=== PATIENT | female | born 1985 | race Caucasian/White ===

== ENCOUNTER 2016-12-10 13:06 | Day surgery (SDC) | payer BC ==
[2016-12-10 13:29] LABS: BASOPHIL 0.4 % (0-2.0); EOSINOPHIL 0.4 % (0-4.5); MCH 28.9 pg (25.7-33.7); MCHC 33.8 g/dl (32.0-36.0); MEAN CELL VOLUME 85.4 fl (80-96); MEAN PLT VOLUME 9.4 fl (7.5-11.1); NEUTROPHILS 75.4 % (42.8-82.8); RDW 12.9 % (11.6-15.6); WHITE BLOOD COUNT 8.6 K/mm3 (4.0-10.0)
[2016-12-10 13:39] VITALS: BMI 28.3
[2016-12-10 14:04] LABS: ALBUMIN 3.2 g/dl (3.4-5.0); ALK PHOS 54 U/L (45-117); ANION GAP 9 (8-16); BILIRUBIN,TOTAL 0.3 mg/dL (0.2-1.0); CALCIUM 8.5 mg/dL (8.5-10.1); CO2 24 mmol/L (21-32); CREATININE 0.5 mg/dL (0.55-1.02); GLUCOSE,RANDOM 82 mg/dL (74-106); SGOT/AST 10 U/L (15-37); SGPT/ALT 16 U/L (12-78); TOT PROT 6.8 g/dl (6.4-8.2)
[2016-12-10 14:06] LABS: ACTIVATED PTT 26.5 SECONDS (26.9-34.4)
[2016-12-10 14:17] LABS: PLATELET COUNT 245 K/MM3 (134-434); PLATELET ESTIMATE ADEQUATE (NORMAL)
[2016-12-10] MEDS ORDERED: PROMETHAZINE HCL 25 MG/1 ML VIAL IVPUSH PRN (14:21)
[2016-12-10] MEDS ORDERED: ONDANSETRON 4 MG/2 ML VIAL IVPUSH PRN (14:21)
[2016-12-10] MEDS ORDERED: PROPOFOL 20 ML ONE ×2 (14:25)
[2016-12-10] MEDS ORDERED: MIDAZOLAM HCL 2 MG/2 ML SINGLE DOSE VIAL ONE ×2 (14:25→14:42)
[2016-12-10] MEDS ORDERED: LACTATED RINGERS SOLUTION 1,000 ML IV SCH (14:30)
--- NOTE | 2016-12-10 14:40 | HP ---
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: No: Alzheimer's, CVA, Dementia, Migraine, Multiple Sclerosis, Peripheral Neuropathy, Parkinson's, Seizure, Syncope, TIA, Vertigo, Other Cardiovascular: No: AFIB, Aneurysm, Aortic Insufficiency, Aortic Stenosis, CAD, CHF, Deep Vein Thrombosis, HTN, Hyperlipdemia, ID, Mitral Insufficiency, Mitral Stenosis, Murmur, Pulmonary Hypertension, Other Pulmonary: No: Asthma, Bronchitis, Cancer, COPD, O2 Dependent, Pneumonia, Previously Intubated, Pulmonary Embolus, Pulmonary Fibrosis, Sleep Apnea, Other Gastrointestinal: No: Ascites, Cancer, Constipation, Crohn's Disease, Diverticulitis, Diverticulosis, Esophageal Varices, Gastritis, GERD, GI Bleed, Hemorrhoids, Hiatal Hernia, Inflamatory Bowel Disease, Irritable Bowel Disease, Pancreatitis, Peptic Ulcer Disease, Ulcerative Colitis, Other Hepatobiliary: No: Cirrhosis, Cholelithiasis, Cholecystitis, Choledocholithiasis , Hepatitis A, Hepatitis B, Hepatitis C, Other Renal/: No: Renal Failure, Renal Inusuff, BPH, Cancer, Hematuria, Hemodialysis , Neurogenic Bladder, Renal Calculi, UTI, Other Reproductive: No: Ectopic , Endometriosis, Fibroids, PID, Polycystic Ovary Syndrome, Postmenopausal, Other ...Para: 2 ...Term: 2 ...Spon : 3 ... Weeks Gestation by Dates: 13 Heme/Onc: No: Anemia, B12 Deficiency, Bleeding Disorder, Cancer, Current Chemotherapy, Current Radiation Therapy, Hemochromatosis, Hypercoaguable State, Myeloproliferative Synd, Sickle Cell Disease, Sickle Cell Trait, Thrombocytopenia, Other Infectious Disease: No: AIDS, C-Diff, Herpes Zoster, HIV, MRSA, STD's, Tuberculosis, VREF, Other Psych: No: Addictions, Anxiety, Bipolar, Depression, Panic, Psychosis, Schizophrenia, Other Musculoskeletal: No: Bursitis, Chronic low back pain, Hemiparesis, Hemiplegia, Osteoarthritis, Paraplegia, Other Rheumatology: No: Fibromyalgia, Gout, Lupus, Rheumatoid Arthritis, Sarcoidosis, Vasculitis, Other ENT: No: Allergic Rhinitis, Sinusitis, Other Endocrine: No: Oliverio's Disease, Many's Disease, Diabetes Insipidus, Diabetes Mellitus, Hyperparathyroidism, Hyperthyroidism, Hypothyroidism, Osteopenia, SIADH, Other Dermatology: No: Basal Cell, Cellulitis, Eczema, Melanoma, Psoriasis, Squamous Cell, Other - Past Surgical History Hx Myomectomy: No Hx Transabdominal Cerclage: No Additional Surgical History: D&C - Smoking History Smoking history: Never smoked Have you smoked in the past 12 months: No Aproximately how many cigarettes per day: 0 - Alcohol/Substance Use Hx Alcohol Use: No History of Substance Use: reports: None - Social History Usual Living Arrangement: Yes: With Spouse, With Child ADL: Independent History of Recent Travel: No Home Medications - Allergies Allergies/Adverse Reactions: Allergies Allergy/AdvReac Type Severity Reaction Status Date / Time No Known Allergies Allergy Verified 12/10/16 13:32 - Home Medications Home Medications: Ambulatory Orders NK [No Known Home Medication] 12/10/16 Family Disease History - Family Disease History Family Disease History: Heart Disease: Grandparent Review of Systems - Review of Systems Constitutional: reports: No Symptoms Eyes: reports: No Symptoms HENT: reports: No Symptoms Neck: reports: No Symptoms Cardiovascular: reports: No Symptoms Respiratory: reports: No Symptoms Gastrointestinal: reports: No Symptoms Genitourinary: reports: No Symptoms Breasts: reports: No Symptoms Reported Musculoskeletal: reports: No Symptoms Integumentary: reports: No Symptoms Neurological: reports: No Symptoms Endocrine: reports: No Symptoms Hematology/Lymphatic: reports: No Symptoms Psychiatric: reports: No Symptoms Pain Intensity: 0 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: Vital Signs Temperature 98.4 F 12/10/16 13:45 Pulse Rate 90 12/10/16 13:45 Respiratory Rate 16 12/10/16 13:45 Blood Pressure 113/64 12/10/16 13:45 O2 Sat by Pulse Oximetry (%) 98 12/10/16 13:46 Constitutional: Yes: Well Nourished, No Distress, Calm Eyes: Yes: WNL, Conjunctiva Clear HENT: Yes: WNL, Atraumatic, Normocephalic Neck: Yes: WNL, Supple, Trachea Midline Cardiovascular: Yes: WNL, Regular Rate and Rhythm Respiratory: Yes: WNL, Regular, CTA Bilaterally Gastrointestinal: Yes: WNL, Normal Bowel Sounds, Soft ...Rectal Exam: Yes: Deferred Renal/: Yes: WNL Pelvis: Yes: WNL External Genitalia: Yes: Normal Internal Exam Deferred: No Vaginal Exam: Yes: Normal Cervix: Yes: Normal Uterus: Yes: Normal, Enlarged Adnexa: Normal: Left, Right Musculoskeletal: Yes: WNL Extremities: Yes: WNL Edema: No Integumentary: Yes: WNL Neurological: Yes: WNL, Alert, Oriented ...Motor Strength: WNL Psychiatric: Yes: WNL, Alert, Oriented Labs: CBC, BMP 12/10/16 13:22 12/10/16 13:22 Imaging - Results Ultrasound: Report Reviewed Assessment/Plan 31yo P2 female with missed AB at EGA(US) 12wk. We had a long discussion about the risks, benefits, and alternatives of surgery. I explained the risks of infection, bleeding, scarring, amenorrhea, Asherman's syndrome, infertility, perforation, need for additional surgery to treat any complications, etc. The pt declined expectant management of missed ab or prostaglandin indx. She requested to proceed with surgery.
[2016-12-10] MEDS ORDERED: ceFAZolin SODIUM 1 GM VIAL IVPB ONE (14:49)
[2016-12-10] MEDS ORDERED: KETAMINE HCL 200 MG/20 ML VIAL ONE (14:51)
[2016-12-10] MEDS ORDERED: MEPERIDINE HCL CARPU-JECT 25 MG/1 ML DISP.SYRIN ONE (15:17)
[2016-12-10] MEDS ORDERED: MEPERIDINE HCL CARPU-JECT 25 MG/1 ML DISP.SYRIN IVPUSH ONE (15:21)
[2016-12-10] MEDS ORDERED: ACETAMINOPHEN 325 MG TABLET (FP) PO PRN (15:26)
[2016-12-10] MEDS ORDERED: IBUPROFEN 400 MG TABLET (FP) PO PRN (15:26)
--- NOTE | 2016-12-10 15:29 | OP ---
Operative Note - Note: Operative Date: 12/10/16 Pre-Operative Diagnosis: Missed Ab at 12wk Operation: Suction, D&C. Intraoperative US guidance Findings: Anteverted uterus c/w 12wk Post-Operative Diagnosis: Same as Pre-op Surgeon: Jas Arteaga Anesthesiologist/PROOF TESTER: Hammad Bolton Anesthesia: General Specimens Removed: POC Estimated Blood Loss (mls): 50 Blood Volume Replaced (mls): 0 Fluid Volume Replaced (mls): 300 Operative Report Dictated: Yes
[2016-12-10 15:57] VITALS: TEMP 98.2
--- NOTE | 2016-12-10 16:32 | OP ---
DATE OF OPERATION: 12/10/2016 PREOPERATIVE DIAGNOSIS: Missed at 12 weeks of estimated gestational age by ultrasound. POSTOPERATIVE DIAGNOSIS: Missed at 12 weeks of estimated gestational age by ultrasound. PROCEDURES: Suction dilation and curettage treatment of missed , intraoperative ultrasound guidance. SURGEON: Theresa Vargas M.D. ANESTHESIOLOGIST: Hammad Bolton MD ANESTHESIA: General. INTRAVENOUS FLUIDS: 300 mL. ESTIMATED BLOOD LOSS: 50 mL. PATHOLOGY: Products of conception. The products of conception were also sent to the lab for genetic testing, as per patient request. FINDINGS: Examination under anesthesia revealed an anteverted uterus, consistent with approximately 12 weeks gestation. Intraoperative ultrasound confirmed demise. Products of conception were noted during suction curettage. No retained products of conception were observed at the end of the procedure. DESCRIPTION OF SURGERY: The patient was met preoperatively. Risks, benefits and alternatives of surgery were discussed in detail. All questions were answered. The patient was then brought to the OR with the IV running. She was placed on the surgical table in the supine position. The general anesthesia was achieved without difficulty. The patient was then placed in a dorsal lithotomy position using adjustable Mehul stirrups. The timeout procedure was conducted as per standard protocol. The patient was then examined under anesthesia with the findings as described above. She was then prepped and draped in the usual sterile fashion. A sterile speculum was introduced inside the vagina with good visualization of the cervix. The cervix was then dilated to accommodate a size 31 Easley dilator. A suction curettage was then performed under direct visualization using ultrasound guidance. All of the products of conception were removed without complications. Once the products of conception were removed, a gentle sharp curettage was performed to assure no retained products of conception. The entire procedure was conducted with real-time ultrasound guidance. Once the procedure was completed, all of the instruments were removed. Sponge, laparotomy and instrument counts were correct. Good hemostasis was noted. The patient was transferred to recovery room, awake and in stable condition. THERESA VARGAS M.D. BRODY/[id number]
[2016-12-10 17:02] VITALS: BP 102/62; PULSE 73
--- NOTE | 2016-12-11 14:48 | PATH ---
Surgical Pathology Report Patient Name: RAMANA MEDELLIN Med. Rec. #: [id number] /Age/Gender: 1985 (Age: 31) / F Account: [id number] Location: [facility] Taken: 12/10/2016 Received: 12/10/2016 Reported: 12/11/2016 Physicians: Jas Arteaga M.D. Specimen(s) Received UTERINE CONTENTS FRESH FOR GENETIC TESTING Clinical History Missed Final Diagnosis UTERINE CONTENTS, EVACUATION: CHORIONIC VILLI CONSISTENT WITH PRODUCTS OF CONCEPTION, AND PORTIONS OF IMMATURE SOMATIC TISSUE. Comment: Chromosome analysis is pending, and a report will follow. Electronically Signed Jay Rodas M.D. Gross Description Received fresh labeled "contents of uterus," is a 10.5 x 7.5 x 1.0 cm aggregate of mohr-red soft tissue fragments. Villous tissue and somatic tissue is identified. The foot measures 0.7 cm from heel to toe. A c s s representative portion of the villous tissue is submitted in RPMI solution for genetic studies. An additional c s s representative portion of tissue is submitted in one cassette. /12/10/2016 saudi12/10/2016
== END 2016-12-10 17:29 | disposition home or self-care (01) ==
LOC: JASU-SURG 13:06
PROVIDERS: ATTEND Obstetrics & Gynecology
PROC: 10D17ZZ Extraction of Products of Conception, Retained, Via Natural or Artificial Opening (ICD-10-PCS; principal; 2016-12-10 14:00)
DX: O02.1 Missed abortion (principal); Z3A.12 12 weeks gestation of pregnancy
CPT/HCPCS: 36415; 76856-TC; 76998-TC; 80053; 85025; 85610; 85730; 86850; 86900; 86901; 88305-TC; 94760